=== PATIENT | female | born 1965 | race African-American/Black ===

== ENCOUNTER 2019-12-13 15:32 | Emergency (ER) | payer SELFPAY ==
[2019-12-13] MEDS ORDERED: PROMETHAZINE 25 MG TABLET ONE (16:29)
[2019-12-13] MEDS ORDERED: INSULIN -REGULAR HUMAN 50 UNIT/0.5 ML ML ONE ×2 (16:48→17:51)
[2019-12-13] MEDS ORDERED: KETOROLAC 30 MG/ML INJ ONE (17:50)
--- NOTE | 2019-12-13 17:52 | ER ---
Nurse's Notes [facility] Name: Inna Membreno Age: 54 yrs Sex: Female : 1965 Arrival Date: 12/13/2019 Time: 15:34 Bed 24 Private MD: Diagnosis: Malaise and fatigue;Other viral infections of unspecified site;Diabetes mellitus due to underlying condition with hyperglycemia Presentation: 12/13 15:38 Presenting complaint: Patient states: my body aches, since Wednesday, i am having nasal tw2 congestion and coughing and having diarrhea as well, i am a diabetic and have to get it checked, i have diverticulitis but i am not cramping up or anything. Transition of care: patient was not received from another setting of care. Onset of symptoms was December 13, 2019. Risk Assessment: Do you want to hurt yourself or someone else? Patient reports no desire to harm self or others. Initial Sepsis Screen: Does the patient meet any 2 criteria? HR > 90 bpm. No. Patient's initial sepsis screen is negative. Does the patient have a suspected source of infection? No. Patient's initial sepsis screen is negative. Care prior to arrival: None. 15:38 Method Of Arrival: Ambulatory tw2 15:38 Acuity: JOYCELYN 3 tw2 Triage Assessment: 15:40 General: Appears in no apparent distress. Behavior is calm, cooperative, appropriate tw2 for age. Pain: Complains of pain in "body aches". 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 - Coronavirus screen:: The patient has NOT traveled to [place] in the past 14 days. - Social history:: Smoking status: . - Ebola Screening: : Patient denies travel to an Ebola-affected area in the 21 days before illness onset. Screenin:04 Abuse screen: Denies threats or abuse. Nutritional screening: No deficits noted. vc Tuberculosis screening: No symptoms or risk factors identified. Fall Risk None identified. Assessment: 16:00 General: Appears in no apparent distress. uncomfortable, ill, Behavior is calm, vc cooperative, appropriate for age. Pain: Complains of pain in "all over". Neuro: Level of Consciousness is awake, alert, obeys commands, Oriented to person, place, time, situation. Cardiovascular: Patient's skin is warm and dry. Respiratory: Respiratory effort is even, unlabored, Respiratory pattern is regular, symmetrical. GI: Reports nausea. : No signs and/or symptoms were reported regarding the genitourinary system. EENT: Reports pain in throat. Derm: Skin temperature is hot. Musculoskeletal: Circulation, motion, and sensation intact. Range of motion: intact in all extremities. 17:00 Reassessment: Patient and/or family updated on plan of care and expected duration. Pain vc level reassessed. Patient is alert, oriented x 3, equal unlabored respirations, skin warm/dry/pink. 18:00 Reassessment: Patient and/or family updated on plan of care and expected duration. Pain vc level reassessed. Patient is alert, oriented x 3, equal unlabored respirations, skin warm/dry/pink. Patient states feeling better. Patient states symptoms have improved. Vital Signs: 15:40 BP 177 / 107; Pulse 96; Resp 17; Temp 98.7(TE); Pulse Ox 97% on R/A; Weight 77.11 kg tw2 (R); Height 4 ft. 11 in. (149.86 cm); Pain 8/10; 18:13 BP 129 / 69; Pulse 92; Resp 20; Temp 100.2; Pulse Ox 96% ; lt1 15:40 Body Mass Index 34.34 (77.11 kg, 149.86 cm) tw2 ED Course: 15:34 Patient arrived in ED. as 15:40 Triage completed. tw2 15:40 Arm band placed on. tw2 15:45 Teresa Wright FNP-C [facility]. snw 15:45 Ming Mason MD is Attending Physician. snw 15:51 Vicky Roth RN is Primary Nurse. vc 16:00 Patient has correct armband on for positive identification. vc 18:15 No provider procedures requiring assistance completed. Patient did not have IV access vc during this emergency room visit. 18:41 Urine Culture Sent. vc Administered Medications: 16:27 Drug: Phenergan 25 mg Route: PO; vc 17:03 Follow up: Response: No adverse reaction vc 16:40 Drug: Insulin Regular Human 3 units {Co-Signature: rio (Perri Patel RN).} Route: vc Sub-Q; Site: right upper arm; 17:57 Follow up: Response: Blood sugar is unchanged vc 17:57 Drug: TORadol 30 mg Route: IM; Site: right deltoid; vc 18:15 Follow up: Response: No adverse reaction; Pain is decreased vc 18:15 Drug: Insulin Regular Human 3 units {Co-Signature: rio (Perri Patel RN).} Route: vc Sub-Q; Site: right upper arm; 18:43 Follow up: Response: No adverse reaction; Medication administered at discharge. vc 18:15 Drug: Macrobid 100 mg Route: PO; vc 18:40 Follow up: Response: Medication administered at discharge. vc Outcome: 17:51 Discharge ordered by MD. welch 18:15 Discharged to home ambulatory, with family. vc 18:15 Condition: good 18:15 Discharge instructions given to patient. 18:18 Patient left the ED. vc Signatures: Teresa Wright, MANAGER QA-C MANAGER QA-CsnAdalgisa Weaver Tara RN RN tw2 Marilyn Menendez 1 Vicky Roth RN RN vc Perri Patel RN iw
--- NOTE | 2019-12-13 17:53 | EDPHYS ---
Physician Documentation [facility] Name: Inna Membreno Age: 54 yrs Sex: Female : 1965 Arrival Date: 12/13/2019 Time: 15:34 Bed 24 Private MD: ED Physician Ming Mason HPI: 12/13 16:25 This 54 yrs old Black Female presents to ER via Ambulatory with complaints of Pain All snw Over, High Blood Sugar. 16:25 Pt states her Granddaughter became ill with diarrhea, bodyaches on Wednesday, Pt developed snw similar s/s on Wednesday (4 days ago). C/o severe bodyaches, diarrhea, sore throat. Denies abd pain/cramping. Onset: The symptoms/episode began/occurred suddenly, 4 day(s) ago, and became persistent. Severity of symptoms: At their worst the symptoms were moderate in the emergency department the symptoms are unchanged. It is unknown whether or not the patient has had similar symptoms in the past. It is unknown whether or not the patient has recently seen a physician. 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 - Coronavirus screen:: The patient has NOT traveled to [place] in the past 14 days. - Social history:: Smoking status: . - Ebola Screening: : Patient denies travel to an Ebola-affected area in the 21 days before illness onset. ROS: 16:18 Eyes: Negative for injury, pain, redness, and discharge. snw 16:18 Neck: Negative for injury, pain, and swelling, Cardiovascular: Negative for chest pain, palpitations, and edema, Respiratory: Negative for shortness of breath, cough, wheezing, and pleuritic chest pain. 16:18 Back: Negative for injury and pain, : Negative for injury, bleeding, discharge, and swelling, MS/Extremity: Negative for injury and deformity, Skin: Negative for injury, rash, and discoloration, Neuro: Negative for headache, weakness, numbness, tingling, and seizure. 16:18 Constitutional: Positive for body aches, fatigue, malaise. 16:18 ENT: Positive for sore throat. 16:18 Abdomen/GI: Positive for diarrhea. Exam: 16:18 Constitutional: This is a well developed, well nourished patient who is awake, alert, snw and in no acute distress. Head/Face: Normocephalic, atraumatic. Eyes: Pupils equal round and reactive to light, extra-ocular motions intact. Lids and lashes normal. Conjunctiva and sclera are non-icteric and not injected. Cornea within normal limits. Periorbital areas with no swelling, redness, or edema. ENT: Nares patent. No nasal discharge, no septal abnormalities noted. Tympanic membranes are normal and external auditory canals are clear. Oropharynx with no redness, swelling, or masses, exudates, or evidence of obstruction, uvula midline. Mucous membranes moist. Neck: Trachea midline, no thyromegaly or masses palpated, and no cervical lymphadenopathy. Supple, full range of motion without nuchal rigidity, or vertebral point tenderness. No Meningismus. Chest/axilla: Normal chest wall appearance and motion. Nontender with no deformity. No lesions are appreciated. Cardiovascular: Regular rate and rhythm with a normal S1 and S2. No gallops, murmurs, or rubs. Normal PMI, no JVD. No pulse deficits. Respiratory: Lungs have equal breath sounds bilaterally, clear to auscultation and percussion. No rales, rhonchi or wheezes noted. No increased work of breathing, no retractions or nasal flaring. Abdomen/GI: Soft, non-tender, with normal bowel sounds. No distension or tympany. No guarding or rebound. No evidence of tenderness throughout. Back: No spinal tenderness. No costovertebral tenderness. Full range of motion. Skin: Warm, dry with normal turgor. Normal color with no rashes, no lesions, and no evidence of cellulitis. MS/ Extremity: Pulses equal, no cyanosis. Neurovascular intact. Full, normal range of motion. Neuro: Awake and alert, GCS 15, oriented to person, place, time, and situation. Cranial nerves II-XII grossly intact. Motor strength 5/5 in all extremities. Sensory grossly intact. Cerebellar exam normal. Normal gait. Psych: Awake, alert, with orientation to person, place and time. Behavior, mood, and affect are within normal limits. Vital Signs: 15:40 BP 177 / 107; Pulse 96; Resp 17; Temp 98.7(TE); Pulse Ox 97% on R/A; Weight 77.11 kg tw2 (R); Height 4 ft. 11 in. (149.86 cm); Pain 8/10; 18:13 BP 129 / 69; Pulse 92; Resp 20; Temp 100.2; Pulse Ox 96% ; lt1 15:40 Body Mass Index 34.34 (77.11 kg, 149.86 cm) tw2 MDM: 15:50 Patient medically screened. snw 17:51 Data reviewed: vital signs, nurses notes. Data interpreted: Pulse oximetry: is 97 %. snw Interpretation: normal. Counseling: I had a detailed discussion with the patient and/or guardian regarding: the historical points, exam findings, and any diagnostic results supporting the discharge/admit diagnosis, the presence of at least one elevated blood pressure reading (>120/80) during this emergency department visit, lab results, the need for outpatient follow up, to return to the emergency department if symptoms worsen or persist or if there are any questions or concerns that arise at home. Special discussion: Based on the patient's Hx, exam, and Dx evaluation, there is no indication for emergent surgery or inpatient Tx. It is understood by the patient/guardian that if the Sx's persist or worsen they need to return immediately for re-evaluation. I have referred the patient to see his PCP for further evaluation of high blood pressure. Based on the history and exam findings, there is no indication for further emergent testing or inpatient evaluation. I discussed with the patient/guardian the need to see the primary care provider for further evaluation of the symptoms. 12/13 15:46 Order name: Urine Culture snw 12/13 15:46 Order name: Urine Microscopic Only snw 12/13 16:27 Order name: Glucose, Ancillary Testing; Complete Time: 16:28 EDMS 12/13 16:40 Order name: Urine Dipstick--Ancillary (enter results) em1 12/13 16:40 Order name: Urine --Ancillary (enter results) em1 12/13 17:42 Order name: Glucose, Ancillary Testing; Complete Time: 17:47 EDMS 12/13 17:56 Order name: Urine Microscopic Only; Complete Time: 18:05 EDMS 12/13 17:57 Order name: Urine --Ancillary; Complete Time: 18:05 EDMS 12/13 17:57 Order name: Urine Dipstick-Ancillary; Complete Time: 18:05 EDMS 12/13 17:57 Order name: Urine Culture EDMI 12/13 15:46 Order name: Urine Dipstick-Ancillary (obtain specimen); Complete Time: 16:39 snw 12/13 15:46 Order name: FSBS; Complete Time: 16:00 snw 12/13 17:05 Order name: FSBS; Complete Time: 17:31 snw Administered Medications: 16:27 Drug: Phenergan 25 mg Route: PO; vc 17:03 Follow up: Response: No adverse reaction vc 16:40 Drug: Insulin Regular Human 3 units {Co-Signature: rio (Perri Patel RN).} Route: vc Sub-Q; Site: right upper arm; 17:57 Follow up: Response: Blood sugar is unchanged vc 17:57 Drug: TORadol 30 mg Route: IM; Site: right deltoid; vc 18:15 Follow up: Response: No adverse reaction; Pain is decreased vc 18:15 Drug: Insulin Regular Human 3 units {Co-Signature: rio Patel RN).} Route: vc Sub-Q; Site: right upper arm; 18:43 Follow up: Response: No adverse reaction; Medication administered at discharge. vc 18:15 Drug: Macrobid 100 mg Route: PO; vc 18:40 Follow up: Response: Medication administered at discharge. vc Disposition: 19:00 Co-signature as Attending Physician, Ming Mason MD I agree with the assessment and kdr plan of care. Disposition: 12/13/19 17:51 Discharged to Home. Impression: Malaise and fatigue, Other viral infections of unspecified site, Diabetes mellitus due to underlying condition with hyperglycemia. - Condition is Stable. - Discharge Instructions: Food Choices to Help Relieve Diarrhea, Adult, Diabetes and Sick Day Management, Diarrhea, Adult, Viral Respiratory Infection, Fatigue, Blood Glucose Monitoring, Adult, Rehydration, Adult. - Prescriptions for promethazine 25 mg Oral Tablet - take 1 tablet by ORAL route every 6 hours As needed; 20 tablet. Macrobid 100 mg Oral Capsule - take 1 capsule by ORAL route every 12 hours for 7 days; 14 capsule. - Work release form, Medication Reconciliation Form, Thank You Letter, Antibiotic Education, Prescription Opioid Use form. - Follow up: Emergency Department; When: As needed; Reason: Worsening of condition. Follow up: Private Physician; When: 2 - 3 days; Reason: Recheck today's complaints, Continuance of care, Re-evaluation by your physician. Signatures: Dispatcher [employer] EDMS Ming Mason MD MD kdr Teresa Wright, ORACLE E BUSINESS DEVELOPER-C ORACLE E BUSINESS DEVELOPER-Csnw Sayra Montoya RN RN tw2 Vicky Roth RN RN vc Irene Williams RN iw Corrections: (The following items were deleted from the chart) 18:18 17:51 12/13/2019 17:51 Discharged to Home. Impression: Malaise and fatigue; Other viral vc infections of unspecified site; Diabetes mellitus due to underlying condition with hyperglycemia. Condition is Stable. Discharge Instructions: Food Choices to Help Relieve Diarrhea, Adult, Diabetes and Sick Day Management, Diarrhea, Adult, Viral Respiratory Infection, Fatigue, Blood Glucose Monitoring, Adult, Rehydration, Adult. Prescriptions for promethazine 25 mg Oral Tablet - take 1 tablet by ORAL route every 6 hours As needed; 20 tablet. and Forms are Work release form, Medication Reconciliation Form, Thank You Letter, Antibiotic Education, Prescription Opioid Use. Follow up: Emergency Department; When: As needed; Reason: Worsening of condition. Follow up: Private Physician; When: 2 - 3 days; Reason: Recheck today's complaints, Continuance of care, Re-evaluation by your physician. snw
[2019-12-13 17:55] LABS: Urine Bacteria 20-50 /HPF (<20); Urine RBC <5 /HPF (NONE SEEN)
[2019-12-13 17:56] LABS: Urine Blood 1+ (NEG); Urine Glucose 2+ (NEG); Urine Protein 3+ (NEG); Urine Specific Gravity >1.030 (1.005-1.030); Urine pH 5.5 (5.0-7.0)
[2019-12-13 17:56] LABS: Urine Mucus 2+ /HPF (NONE SEEN)
[2019-12-13] MEDS ORDERED: NITROFURAN MACRO 100 MG CAP PO ONE (18:12)
[2019-12-13 18:25] VITALS: BP 177/107; TEMP 98.7; O2SAT 97
== END 2019-12-13 18:18 | disposition home or self-care (01) ==
LOC: ER 15:32
DX: B34.8 Other viral infections of unspecified site (principal); E08.65 Diabetes mellitus due to underlying condition with hyperglycemia; R53.81 Other malaise; R53.83 Other fatigue; I10 Essential (primary) hypertension; Z79.4 Long term (current) use of insulin; Z88.5 Allergy status to narcotic agent
CPT/HCPCS: 81003; 81015; 81025; 82947; 87086; 87088; 96372; 99283; Q0169

== ENCOUNTER → 2023-09-13 | Day surgery (SDC) | payer OTHER ==
--- NOTE | 2023-09-13 12:02 | RAD REPORT ---
EXAM DESCRIPTION: Ultrasound-guided vacuum assisted left breast core biopsy CLINICAL HISTORY: Breast mass R92.8 COMPARISON: Follow Up Breast Axilla Comp dated 08/13/2023; 3D DIAG JUNAID LT UNI W/CAD dated 08/13/2023 FINDINGS: Informed consent was obtained and time-out was performed. The patient's left breast was prepped and draped in the usual sterile fashion. 1% lidocaine was used for local anesthetic purposes. Utilizing aseptic technique and ultrasound guidance, a 12 gauge vacuum assisted core biopsy device wa s used to obtain a single core specimens through the mass of interest approximate 1 o'clock position. A post biopsy clip was then placed. All collected material was sent for cytology. Patient tolerated procedure well. IMPRESSION: Successful ultrasound guided vacuum assisted left breast mass biopsy.
== END ==
LOC: DS 08:48
DX: N60.22 Fibroadenosis of left breast (principal)
CPT/HCPCS: 19083; 88305